=== PATIENT | female | born 1945 | race Caucasian/White ===

== ENCOUNTER → 2016-08-19 | Outpatient (CLI) | payer MEDICARE ==
--- NOTE | 2016-08-19 12:42 | MM ---
Reason for exam: follow-up at short interval from prior study. Last mammogram was performed 7 months ago. History: Patient is postmenopausal and history of other cancer. Family history of premenopausal breast cancer in mother at age 38. Lumpectomy of the right breast, January 2016. Radiation therapy, 2016. Took estrogen for 14 years beginning at age 47. Physical Findings: Nurse did not find any significant physical abnormalities on exam. MG 3D Diag Mammo W/Cad RT CC and MLO view(s) were taken of the right breast. Prior study comparison: January 20, 2016, right breast MG 3d work up w/cad RT. January 02, 2016, bilateral MG 3d screening mammo w/cad. The breast tissue is heterogeneously dense. This may lower the sensitivity of mammography. No suspicious calcifications are seen. Post lumpectomy changes in the right breast. No masses seen. These results were verbally communicated with the patient and result sheet given to the patient on 08/19/16. ASSESSMENT: Benign, BI-RAD 2 RECOMMENDATION: Follow-up diagnostic mammogram of both breasts in 6 months.
== END | disposition home or self-care (01) ==
LOC: RADMAMWWP 10:17
PROVIDERS: ATTEND Internal Medicine Medical Oncology
DX: C50.211 Malignant neoplasm of upper-inner quadrant of right female breast (principal)
CPT/HCPCS: G0206; G0279

== ENCOUNTER → 2017-02-19 | Outpatient (CLI) | payer MEDICARE ==
--- NOTE | 2017-02-19 10:00 | MM ---
Reason for exam: follow-up at short interval from prior study. Last mammogram was performed 6 months ago. History: Patient is postmenopausal, has history of bilateral breast cancer at age 70, and history of other cancer. Family history of premenopausal breast cancer in mother at age 38. Lumpectomy of the right breast, January 2016. Radiation therapy, 2015. Took estrogen for 14 years beginning at age 47. Physical Findings: Nurse did not find any significant physical abnormalities on exam. MG 3D Diag Mammo W/Cad LIDA Bilateral CC and MLO view(s) were taken. Prior study comparison: August 19, 2016, right breast MG 3d diag mammo w/cad RT. January 20, 2016, right breast MG 3d work up w/cad RT. The breast tissue is heterogeneously dense. This may lower the sensitivity of mammography. Finding: Architectural distortion in the right breast consistent with previous biopsy. No significant changes in finding since August 19, 2016 and January 20, 2016. These results were verbally communicated with the patient and result sheet given to the patient on 02/19/17. ASSESSMENT: Benign, BI-RAD 2 RECOMMENDATION: Follow-up diagnostic mammogram of both breasts in 1 year.
== END | disposition home or self-care (01) ==
LOC: RADMAMWWP 09:03
PROVIDERS: ATTEND Internal Medicine Medical Oncology
DX: C50.211 Malignant neoplasm of upper-inner quadrant of right female breast (principal)
CPT/HCPCS: G0204; G0279

== ENCOUNTER → 2017-06-03 | Outpatient (CLI) | payer MEDICARE | END | disposition home or self-care (01) | LOC: MMGSC 09:25 | PROVIDERS: ATTEND Obstetrics & Gynecology | DX: G47.00 Insomnia, unspecified (principal); N95.1 Menopausal and female climacteric states; R41.3 Other amnesia | CPT/HCPCS: 36415; 82670; 83001; 84403 ==

== ENCOUNTER → 2018-02-21 | Outpatient (CLI) | payer MEDICARE ==
--- NOTE | 2018-02-22 08:26 | MM ---
Reason for exam: additional evaluation requested from prior study. Last mammogram was performed 1 year ago. History: Patient is postmenopausal, has history of bilateral breast cancer at age 70, and history of other cancer. Family history of breast cancer in daughter at age 46 and premenopausal breast cancer in mother at age 38. Lumpectomy of the right breast, January 2016. Radiation therapy, 2015. Took estrogen for 14 years beginning at age 47. Physical Findings: Nurse did not find any significant physical abnormalities on exam. MG 3D Diag Mammo W/Cad LIDA Bilateral CC and MLO view(s) were taken. Prior study comparison: February 19, 2017, bilateral MG 3d diag mammo w/cad [facility]. August 19, 2016, right breast MG 3d diag mammo w/cad RT. The breast tissue is heterogeneously dense. This may lower the sensitivity of mammography. No suspicious calcifications are seen. Stable post operative changes right breast. No significant new findings when compared with previous films. These results were verbally communicated with the patient and result sheet given to the patient on 02/21/18. ASSESSMENT: Benign, BI-RAD 2 RECOMMENDATION: Follow-up diagnostic mammogram of both breasts in 1 year.
== END | disposition home or self-care (01) ==
LOC: RADMAMWWP 15:02
PROVIDERS: ATTEND Internal Medicine Medical Oncology
DX: Z08 Encounter for follow-up examination after completed treatment for malignant neoplasm (principal); Z85.3 Personal history of malignant neoplasm of breast; Z98.890 Other specified postprocedural states
CPT/HCPCS: 77066; G0279; 77062

== ENCOUNTER → 2019-04-21 | Outpatient (CLI) | payer MEDICARE ==
--- NOTE | 2019-04-21 13:38 | MM ---
Reason for exam: additional evaluation requested from prior study. Last mammogram was performed 1 year and 2 months ago. History: Patient is postmenopausal, has history of bilateral breast cancer at age 70, and history of other cancer. Family history of breast cancer in daughter at age 46 and premenopausal breast cancer in mother at age 38. Lumpectomy of the right breast, January 2016. Radiation therapy, 2016. Took estrogen for 14 years beginning at age 47. Physical Findings: Nurse did not find any significant physical abnormalities on exam. MG 3D Diag Mammo W/Cad LIDA Bilateral CC and MLO view(s) were taken. Prior study comparison: February 21, 2018, bilateral MG 3d diag mammo w/cad [facility]. February 19, 2017, bilateral MG 3d diag mammo w/cad LIDA. Post surgical changes in the right breast. No significant new findings when compared with previous films. These results were verbally communicated with the patient and result sheet given to the patient on 04/21/19. ASSESSMENT: Benign, BI-RAD 2 RECOMMENDATION: Follow-up diagnostic mammogram of both breasts in 1 year.
== END | disposition home or self-care (01) ==
LOC: RADMAMWWP 09:40
PROVIDERS: ATTEND Obstetrics & Gynecology
DX: R92.8 Other abnormal and inconclusive findings on diagnostic imaging of breast (principal)
CPT/HCPCS: 77066; G0279; 77062

== ENCOUNTER → 2020-06-13 | Outpatient (CLI) | payer MEDICARE ==
--- NOTE | 2020-06-13 11:52 | MM ---
Reason for exam: additional evaluation requested from prior study. Last mammogram was performed 1 year and 2 months ago. History: Patient is postmenopausal, has history of bilateral breast cancer at age 70, and history of other cancer. Family history of breast cancer in daughter at age 46 and premenopausal breast cancer in mother at age 38. Lumpectomy of the right breast, January 2016. Radiation therapy, 2016. Took estrogen for 14 years beginning at age 47. Physical Findings: Nurse did not find any significant physical abnormalities on exam. MG 3D Diag Mammo W/Cad LIDA Bilateral CC and MLO view(s) were taken. XCCL view(s) were taken of the left breast. Prior study comparison: April 21, 2019, bilateral MG 3d diag mammo w/cad [facility]. February 21, 2018, bilateral MG 3d diag mammo w/cad L[facility]. There are scattered fibroglandular densities. Post surgical changes right upper inner quadrant. No significant new findings when compared with previous films. These results were verbally communicated with the patient and result sheet given to the patient on 06/13/20. ASSESSMENT: Benign, BI-RAD 2 RECOMMENDATION: Follow-up diagnostic mammogram of both breasts in 1 year.
== END | disposition home or self-care (01) ==
LOC: RADMAMWWP 10:43
PROVIDERS: ATTEND Obstetrics & Gynecology
DX: R92.8 Other abnormal and inconclusive findings on diagnostic imaging of breast (principal)
CPT/HCPCS: 77066; G0279; 77062

== ENCOUNTER → 2023-07-14 | Outpatient (CLI) | payer OTHER, MEDICARE ==
--- NOTE | 2023-07-14 18:46 | MM ---
Reason for Exam: Screening (asymptomatic). Last mammogram was performed 1 year(s) and 1 month(s) ago. Patient History: Menarche at age 14. First Full-Term at age 22. Left ovary removed at age 47. Right ovary removed at age 47. Hysterectomy at age 47. Postmenopausal. Breast cancer, age 70. Other cancer. Estrogen for 14 years from age 47 until age 61. 01/2016, Lumpectomy on the Right side. 2016, Radiation Therapy. Daughter had breast cancer, age 46. Mother had breast cancer, age 38. Prior Study Comparison: 06/13/2020 Bilateral Diagnostic Mammogram, [facility]. 06/18/2021 Bilateral Diagnostic Mammogram, [facility]. 06/24/2022 Bilateral MG 3D diag mammo w/cad LIDA, [facility]. Tissue Density: There are scattered areas of fibroglandular density. Findings: Analyzed By CAD. Postsurgical changes on the right. Inferiorly on the right MLO view, the patient's area of asymmetric density has become more defined. This may be positional and superimposition but further evaluation is recommended. Otherwise, no significant change. Overall Assessment: Incomplete: need additional imaging evaluation, BI-RAD 0 Management: Special View Mammogram of the right breast. Diagnostic Breast Ultrasound of the right breast. Additional views right breast to include spot 3-D MLO and 3-D lateral views. Targeted right breast ultrasound if any persisting abnormality. [facility] will attempt to contact patient to return for supplemental views and ultrasound if indicated. Electronically signed and approved by: Sonia Richter M.D. Radiologist
== END | disposition home or self-care (01) ==
LOC: RADMAMWWP 10:25
PROVIDERS: ATTEND Obstetrics & Gynecology
DX: Z12.31 Encounter for screening mammogram for malignant neoplasm of breast (principal); Z78.0 Asymptomatic menopausal state; Z80.3 Family history of malignant neoplasm of breast; Z85.3 Personal history of malignant neoplasm of breast
CPT/HCPCS: 77063; 77067

== ENCOUNTER → 2023-07-16 | Outpatient (CLI) | payer OTHER, MEDICARE ==
--- NOTE | 2023-07-16 11:45 | MM ---
Reason for Exam: Additional evaluation requested from abnormal screening. Last screening mammogram was performed less than 1 month ago. Patient History: Menarche at age 14. First Full-Term at age 22. Left ovary removed at age 47. Right ovary removed at age 47. Hysterectomy at age 47. Postmenopausal. Breast cancer, age 70. Other cancer. Estrogen for 14 years from age 47 until age 61. 01/2016, Lumpectomy on the Right side. 2016, Radiation Therapy. Daughter had breast cancer, age 46. Mother had breast cancer, age 38. Prior Study Comparison: 02/19/2017 Bilateral Diagnostic Mammogram, [facility]. 02/21/2018 Bilateral Diagnostic Mammogram, [facility]. 04/21/2019 Bilateral Diagnostic Mammogram, [facility]. 06/13/2020 Bilateral Diagnostic Mammogram, [facility]. 06/18/2021 Bilateral Diagnostic Mammogram, [facility]. 06/24/2022 Bilateral MG 3D diag mammo w/cad LIDA, [facility]. 07/14/2023 Bilateral MG 3D screening mammo w/cad, [facility]. Tissue Density: Right: There are scattered areas of fibroglandular density. Findings: Analyzed By CAD. Postsurgical and posttreatment change redemonstrated in the right breast. The area of asymmetric density inferior to the lumpectomy site becomes less defined on additional views. The appearance is unchanged from prior studies. No persisting abnormality is seen. Overall Assessment: Benign, BI-RAD 2 Management: Screening Mammogram of both breasts in 1 year. . Results were given to the patient verbally at the time of exam. Patient should continue monthly self-breast exams. A clinical breast exam by your physician is recommended on an annual basis. This exam should not preclude additional follow-up of suspicious palpable abnormalities. Electronically signed and approved by: Sonia Richter M.D. Radiologist
== END | disposition home or self-care (01) ==
LOC: RADMAMWWP 10:20
PROVIDERS: ATTEND Obstetrics & Gynecology
DX: R92.321 Mammographic fibroglandular density, right breast (principal); Z78.0 Asymptomatic menopausal state; Z80.3 Family history of malignant neoplasm of breast; Z85.3 Personal history of malignant neoplasm of breast
CPT/HCPCS: 77061; 77065

== ENCOUNTER → 2024-08-11 | Outpatient (CLI) | payer OTHER ==
--- NOTE | 2024-08-11 16:16 | MM ---
Reason for Exam: Screening (asymptomatic). Last mammogram was performed 1 year(s) and 1 month(s) ago. Patient History: Menarche at age 14. First Full-Term at age 22. Left ovary removed at age 47. Right ovary removed at age 47. Hysterectomy at age 47. Postmenopausal. Breast cancer, right, age 70. Other cancer. Previous chest radiation therapy at age 70. Estrogen for 14 years from age 47 until age 61. 01/2016, Lumpectomy on the Right side. 2016, Radiation Therapy. Daughter had breast cancer, age 46. Mother had breast cancer, age 38. Prior Study Comparison: 06/24/2022 Bilateral MG 3D diag mammo w/cad LIDA, [facility]. 07/14/2023 Bilateral MG 3D screening mammo w/cad, [facility]. 07/16/2023 Right MG 3D work up w/cad RT, [facility]. Tissue Density: There are scattered areas of fibroglandular density. Findings: Analyzed By CAD. Postsurgical and posttreatment changes right breast. Similar fat necrosis calcifications at the patient's lumpectomy site on the right. Asymmetric density inferior right MLO view remains unchanged. Generator device partially visualized along the upper left pectoralis. There is no suspicious group of microcalcifications or new suspicious mass in either breast. Overall Assessment: Benign, BI-RAD 2 Management: Screening Mammogram of both breasts in 1 year. Patient should continue monthly self-breast exams. A clinical breast exam by your physician is recommended on an annual basis. This exam should not preclude additional follow-up of suspicious palpable abnormalities. Note on Roma scores and lifetime risk: 1. A Roma score greater than 3% is considered moderate risk. If this is the case, consider specialist referral to assess eligibility for a risk reducing agent. 2. If overall lifetime risk for the development of breast cancer is 20% or higher, the patient may qualify for future screening with alternating mammogram and breast MRI. [facility], , 08/11/2024 4:13 PM. Electronically signed and approved by: Sonia Richter M.D. Radiologist
== END | disposition home or self-care (01) ==
LOC: RADMAMWWP 10:58
PROVIDERS: ATTEND Family Medicine
DX: Z12.31 Encounter for screening mammogram for malignant neoplasm of breast (principal); R92.323 Mammographic fibroglandular density, bilateral breasts; Z78.0 Asymptomatic menopausal state; Z85.3 Personal history of malignant neoplasm of breast; Z80.3 Family history of malignant neoplasm of breast
CPT/HCPCS: 77063; 77067